=== PATIENT | female | born 1955 | race Caucasian/White ===

== ENCOUNTER 2023-09-27 09:02 | Outpatient (OUT) | payer MEDICARE, SELFPAY ==
--- NOTE | 2023-09-27 09:07 | MM_ITS ---
Patient Name: AMELIA LAMB MR#: [id number] : 1955 Exam Date: 09/27/2023 Ordering Doctor: DR JUAQUIN RASHID M.D. RADIOLOGY REPORT PROCEDURE: MM TOMOSYNTHESIS SCREENING BI COMPARISON: MG MAMM SCREEN 3D [place] CAD, 11/18/2020. MG MAMM SCREEN [place] W CAD, 10/09/2019. MG MAMM SCREEN [place] W CAD, 08/09/2018. MG MAMM [place] SCRN W CAD DIG, 12/07/2013. INDICATIONS: Screening Calculator Name NCI Breast Cancer Risk Assessment Tool 5 Year Breast Cancer Risk 1.60% Lifetime Breast Cancer Risk 5.20% Personal Breast Cancer No Personal Ovarian Cancer No Treatments None Family Cancers None LOCATION: [facility] BREAST COMPOSITION: There are scattered areas of fibroglandular density. FINDINGS: DIAGNOSTIC CATEGORY 1--NEGATIVE. RIGHT BREAST: No significant suspicious finding. No significant change has occurred. LEFT BREAST: No significant suspicious finding. No significant change has occurred. RECOMMENDATIONS: ROUTINE MAMMOGRAM AND CLINICAL EVALUATION IN 12 MONTHS. PLEASE NOTE: A NORMAL MAMMOGRAM DOES NOT EXCLUDE THE POSSIBILITY OF BREAST CANCER. A CLINICALLY SUSPICIOUS PALPABLE LUMP SHOULD BE BIOPSIED. Dictated by: Caleb Moreno M.D. on 09/27/2023 at 16:09 Approved by: Caleb Moreno M.D. on 09/27/2023 at 16:10
== END 2023-09-27 09:03 | disposition home or self-care (01) ==
LOC: MAMMO 09:02
PROVIDERS: PCP Internal Medicine; Visit Provider Internal Medicine
DX: Z12.31 Encounter for screening mammogram for malignant neoplasm of breast (principal)
CPT/HCPCS: 77063; 77067